=== PATIENT | female | born 1955 | race American Indian/Alaskan Native ===

== ENCOUNTER 2020-08-20 15:47 | Emergency (ER) | payer BC, MEDICARE ==
[2020-08-20] MEDS ORDERED: cloNIDine 0.2 MG TAB PO ONE (16:15)
--- NOTE | 2020-08-20 16:15 | Event Note ---
ED Screening Note ED Screening Note: Patient presents for hypertension for a month She states that she takes amlodipine and clonidine and reports that she takes 1 other medication She states that she has had problems with her blood pressure for a long time and has difficulty getting it comes under control She states that her primary care doctor frequently changes her medication She states that she last had her medication changed a month ago Patient states that she has intermittent headache and occasional blurry vision, she states that she already has floaters in her vision and is currently receiving injections by malt loader and has appointment with them on Saturday She denies any chest pain, shortness of breath, speech disturbance, gait disturbance, numbness, weakness This initial assessment/diagnostic orders/clinical plan/treatment(s) is/are subject to change based on patients health status, clinical progression and re-assessment by fellow clinical providers in the ED. Further treatment and workup at subsequent clinical providers discretion. Patient/guardian urged not to elope from the ED as their condition may be serious if not clinically assessed and managed. Initial orders include: Labs, urine, EKG Clonidine 0.2 mg
[2020-08-20 17:21] LABS: Basophils # (Auto) 0.1 K/mm3 (0.0-0.1); Basophils % (Auto) 0.6 % (0.0-1.8); Eosinophils # (Auto) 0.1 K/mm3 (0.0-0.4); Eosinophils % (Auto) 1.3 % (0.0-4.3); Hematocrit 37.8 % (30.3-42.9); Hemoglobin 12.8 gm/dl (10.1-14.3); Lymphocytes % (Auto) 37.3 % (13.4-35.0); Mean Corpuscular HGB Conc 34 % (30-34); Mean Corpuscular Volume 88 fl (79-97); Monocytes # (Auto) 0.5 K/mm3 (0.0-0.8); Monocytes % (Auto) 6.7 % (0.0-7.3); Platelet Count 351 K/mm3 (140-440); Red Blood Count 4.29 M/mm3 (3.65-5.03); Red Cell Distribution Width 14.8 % (13.2-15.2)
[2020-08-20 17:26] LABS: Alanine Aminotransferase 17 units/L (7-56); Albumin 3.8 g/dL (3.9-5); BUN/Creatinine Ratio 17; Blood Urea Nitrogen 19 mg/dL (7-17); Calcium 9.5 mg/dL (8.4-10.2); Hemolysis Index 3
[2020-08-20 17:27] LABS: Bacteria,Urine 1+ /HPF (Negative); Bilirubin,Urine NEG (Negative); Blood,Urine SM (Negative); Color,Urine Yellow (Yellow); Urobilinogen,Urine < 2.0 mg/dL (<2.0)
[2020-08-20] MEDS ORDERED: hydrALAZINE 100 MG TAB PO ONE (20:49)
[2020-08-20] MEDS ORDERED: cloNIDine 0.1 MG TAB PO ONE (20:49)
--- NOTE | 2020-08-20 21:00 | Emergency Department Report ---
ED General Adult HPI - General Chief complaint: High BP Stated complaint: HYPERTENSIVE Time Seen by Provider: 08/20/20 16:13 Source: patient Mode of arrival: Ambulatory Limitations: No Limitations - History of Present Illness Initial comments: CC: "My blood pressure stays up." HPI: This is a 65 yo female with hx of HTN, DM, eye disorder, dyslipidemia who presents with elevated blood pressure. Patient has appointment with outside clinic today. Blood pressure 216/119. Referred to ED. Her PCP has changed her medications several times over the past 3 years. She currently takes 3 BP medications including amlodipine, Clonidine 0.2 mg BID and a third medication that she can not recall. She has had daily morning headache for at least one month. She has mild sharp headache located at the vertex. Eventually the headache subsides throughout the day. Slurred speech documented on triage note. Patient states that her speech is different when she does not wear her dentures. She had all teeth extracted 4 months ago. She denies paralysis, numbness, new visual changes, or gait abnormality. Patient is currently pain free. She received Clonidine in triage. She is currently being treated by red cap for eye condition. Patient was admitted to this hospital in 2018 for evaluation of vertigo. Patient took this morning's clonidine dose. -: Gradual, month(s) (one month) Location: head Severity scale (0 -10): 4 Quality: sharp Consistency: now resolved Improves with: other (time) Worsens with: none Associated Symptoms: denies other symptoms Treatments Prior to Arrival: other (routine doctor's appointment) - Related Data Home Medications Medication Instructions Recorded Confirmed Last Taken Metformin HCl [Fortamet ER] 1,000 mg PO BID 07/07/17 07/07/17 Unknown Valsartan/Hydrochlorothiazide 1 tab PO DAILY 07/07/17 07/07/17 Unknown [Valsartan-Hctz 160-25 mg Tab] Previous Rx's Medication Instructions Recorded Last Taken Type Meclizine [Antivert] 25 mg PO Q8H PRN #30 tablet 07/11/17 Unknown Rx amLODIPine 10 mg PO QDAY #30 tablet 07/11/17 Unknown Rx hydrALAZINE [Apresoline TAB] 25 mg PO Q8HR #90 tablet 07/11/17 Unknown Rx Allergies Allergy/AdvReac Type Severity Reaction Status Date / Time No Known Allergies Allergy Verified 07/07/17 00:52 ED Review of Systems ROS: Stated complaint: HYPERTENSIVE Other details as noted in HPI Comment: All other systems reviewed and negative Constitutional: denies: fever, malaise Respiratory: denies: cough, shortness of breath Gastrointestinal: denies: abdominal pain, nausea, vomiting Musculoskeletal: denies: back pain Neurological: headache. denies: weakness, numbness, paresthesias, confusion, abnormal gait, vertigo ED Past Medical Hx - Past Medical History Previous Medical History?: Yes Hx Hypertension: Yes Hx Diabetes: Yes Additional medical history: Hypercholesterolemia - Surgical History Past Surgical History?: Yes Additional Surgical History: Hysterectomy, tummy tuck - Social History Smoking Status: Never Smoker - Medications Home Medications: Home Medications Medication Instructions Recorded Confirmed Last Taken Type Metformin HCl [Fortamet ER] 1,000 mg PO BID 07/07/17 07/07/17 Unknown History Valsartan/Hydrochlorothiazide 1 tab PO DAILY 07/07/17 07/07/17 Unknown History [Valsartan-Hctz 160-25 mg Tab] Meclizine [Antivert] 25 mg PO Q8H PRN #30 tablet 07/11/17 Unknown Rx amLODIPine 10 mg PO QDAY #30 tablet 07/11/17 Unknown Rx hydrALAZINE [Apresoline TAB] 25 mg PO Q8HR #90 tablet 07/11/17 Unknown Rx ED Physical Exam - General Limitations: No Limitations General appearance: alert, in no apparent distress - Head Head exam: Present: atraumatic, normocephalic - Eye Eye exam: Present: normal appearance - ENT ENT exam: Present: mucous membranes moist - Neck Neck exam: Present: normal inspection, full ROM - Respiratory Respiratory exam: Present: normal lung sounds bilaterally. Absent: respiratory distress, wheezes, rales, rhonchi - Cardiovascular Cardiovascular Exam: Present: regular rate, normal rhythm, normal heart sounds. Absent: systolic murmur, diastolic murmur, rubs, gallop - GI/Abdominal GI/Abdominal exam: Present: soft, normal bowel sounds. Absent: distended, tenderness, guarding, rebound - Extremities Exam Extremities exam: Present: normal inspection - Neurological Exam Neurological exam: Present: alert, oriented X3 - Psychiatric Psychiatric exam: Present: normal affect, normal mood - Skin Skin exam: Present: warm, dry, intact, normal color. Absent: rash ED Course Vital Signs 05/15/21 05/15/21 05/15/21 16:06 20:50 21:31 Temperature 98.9 F Pulse Rate 87 98 H 64 Respiratory 18 18 Rate Blood Pressure 262/126 151/86 Blood Pressure 211/96 [Left] O2 Sat by Pulse 97 100 Oximetry ED Medical Decision Making - Lab Data Result diagrams: 08/20/20 16:24 08/20/20 16:24 - EKG Data EKG shows normal: sinus rhythm, axis, intervals, QRS complexes, ST-T waves Rate: normal - EKG Data Interpretation: LVH 08/20/20 20:59 EKG interpreted by me EKG obtained 1620 Normal sinus rhythm rate 75 bpm normal axis normal intervals no ST-T sign ischemia positive LVH - Medical Decision Making Hypertensive urgency, asymptomatic. No evidence of endorgan damage. CBC chemistry within normal limits. Urinalysis reveals proteinuria. Suspect contaminated sample with epithelial cells and bacteria. I have referred patient to shot polisher for blood pressure management. Also concern for diabetic nephropathy with proteinuria evident today. With extremely high systolic blood pressure 262 mm Hg at triage, must consider rebound hypertension in setting of clonidine use. Patient states that she took her morning dose of clonidine. After 0.2 mg of clonidine, repeat blood pressure 151/82. Critical care attestation.: If time is entered above; I have spent that time in minutes in the direct care of this critically ill patient, excluding procedure time. ED Disposition Clinical Impression: Hypertensive urgency, malignant, Proteinuria due to type 2 diabetes mellitus Disposition: DC-01 TO HOME OR SELFCARE Is pt being admited?: No Does the pt Need Aspirin: No Condition: Stable Instructions: Managing Your Hypertension, Diabetes Mellitus Type 2 in Adults (ED) Additional Instructions: Please call Dr. Graham for next available appointment. She is an expert in blood pressure management. Referrals: EDGAR GRAHAM MD [Staff Physician] - 3-5 Days
[2020-08-20 22:33] VITALS: BP 150/72
--- NOTE | 2020-08-23 17:44 | Electrocardiograph Report ---
[facility] Test Date: 2020-08-20 Test Time: 16:20:21 Pat Name: TASIA ISRAEL Department: Room: Gender: F Tool Repair Technician: SPENCER : 1955 Requested By: BRI VIVAS Order Number: [id number] Reading MD: Jono Huff Measurements Intervals [place] Rate: 76 P: 44 WV: 158 QRS: 22 QRSD: 72 T: 62 QT: 383 QTc: 431 Interpretive Statements Sinus rhythm Probable left atrial enlargement Probable left ventricular hypertrophy No previous ECG available for comparison Electronically Signed On 08-23-2020 17:43:46 EDT by Jono Huff
== END 2020-08-20 21:50 | disposition home or self-care (01) ==
LOC: ED 15:47
DX: R80.9 Proteinuria, unspecified (principal); E11.9 Type 2 diabetes mellitus without complications; I16.0 Hypertensive urgency; Z90.710 Acquired absence of both cervix and uterus; Z98.890 Other specified postprocedural states; Z79.84 Long term (current) use of oral hypoglycemic drugs; Z79.899 Other long term (current) drug therapy
CPT/HCPCS: 36415; 80053; 81001; 84484; 85025; 93005